=== PATIENT | male | born 1985 | race American Indian/Alaskan Native ===

== ENCOUNTER 2018-05-13 03:37 | Emergency (ER) | payer MEDICARE, MEDICAID ==
[2018-05-13 03:38] VITALS: BMI 32.5
[2018-05-13 03:53] VITALS: TEMP 98.4
--- NOTE | 2018-05-13 04:23 | ED PDOC ---
Arrival/HPI - General Chief Complaint: Rib Injury Time Seen by Provider: 05/13/18 04:04 Historian: Patient - History of Present Illness Narrative History of Present Illness (Text): 05/13/18 04:16 33 year old male, with no significant history, presents to the emergency department complaining of right side rib pain s/p doing a skateboard trick 8 days ago. Patient states he kept putting ice and took a few Ibuprofen with no relief, so patient decided to come in for evaluation. Patient denies any fever, chills, chest pain, shortness of breath, nausea, vomiting, diarrhea, urinary symptoms, back pain, neck pain, headache, dizziness, or any other complaints/ injuries. Time/Duration: Other (8 days) Symptom Onset: Gradual Symptom Course: Unchanged Activities at Onset: Light Context: Other (skateboard) Past Medical History - Provider Review Nursing Documentation Reviewed: Yes - Psychiatric Hx Substance Use: Yes - Suicidal Assessment Feels Threatened In Home Enviroment: No Family/Social History - Physician Review Nursing Documentation Reviewed: Yes Family/Social History: No Known Family HX Smoking Status: Light Smoker < 10 Cigarettes Daily Hx Alcohol Use: Yes Hx Substance Use: Yes Substance used: marijuana Allergies/Home Meds Allergies/Adverse Reactions: Allergies No Known Allergies Allergy (Unverified 11/30/15 11:33) Home Medications: Home Meds Medication Instructions Recorded Confirmed No Known Home Med 05/13/18 05/13/18 Review of Systems - Physician Review All systems were reviewed & negative as marked: Yes - Review of Systems Constitutional: absent: Fevers, Other (Chills) Respiratory: absent: SOB Cardiovascular: absent: Chest Pain Gastrointestinal: absent: Diarrhea, Nausea, Vomiting Genitourinary Male: absent: Dysuria, Frequency, Hematuria Musculoskeletal: Other (right rib pain). absent: Back Pain, Neck Pain Neurological: absent: Headache, Dizziness Physical Exam Vital Signs Reviewed: Yes Vital Signs Temp Pulse Resp BP Pulse Ox 05/13/18 05:15 74 16 110/68 97 05/13/18 03:47 98.4 F 84 18 108/70 96 Temperature: Afebrile Blood Pressure: Normal Pulse: Regular Respiratory Rate: Normal Appearance: Positive for: Well-Appearing, Non-Toxic, Comfortable Pain Distress: None Mental Status: Positive for: Alert and Oriented X 3 - Systems Exam Head: Present: Atraumatic, Normocephalic Pupils: Present: PERRL Extroacular Muscles: Present: EOMI Conjunctiva: Present: Normal Mouth: Present: Moist Mucous Membranes Neck: Present: Normal Range of Motion Respiratory/Chest: Present: Clear to Auscultation, Good Air Exchange, Other ( Tenderness to the anterior inferior rib cage with no bruising or abrasions ). No: Respiratory Distress, Accessory Muscle Use Cardiovascular: Present: Regular Rate and Rhythm, Normal S1, S2. No: Murmurs Abdomen: No: Tenderness, Distention, Peritoneal Signs Back: Present: Normal Inspection Upper Extremity: Present: Normal Inspection. No: Cyanosis, Edema Lower Extremity: Present: Normal Inspection. No: Edema Neurological: Present: GCS=15, CN II-XII Intact, Speech Normal Skin: Present: Warm, Dry, Normal Color. No: Rashes Psychiatric: Present: Alert, Oriented x 3, Normal Insight, Normal Concentration Medical Decision Making ED Course and Treatment: 05/13/18 04:17 Impression: 33 year old male presents complaining of right side rib pain s/p doing a skateboard trick 8 days ago. Plan: -- Toradol -- Ribs Right & PA Chest x-ray -- Reassess and disposition Progress Notes: 05/13/18 04:52 Ribs Right & PA Chest x-ray Impression: As read by me, negative for fractures. 05/13/18 05:01 On re-evaluation, patient feels better and is in no acute distress. I have discussed the results and plan with the patient, who expresses understanding. Patient in agreement with plan to be discharged home. Patient is stable for discharge. Patient was instructed to follow up with physician or return if symptoms worsen or new concerning symptoms arise. - RAD Interpretation Radiology Orders: 05/13/18 04:04 RIBS RIGHT & PA CHEST [RAD] Stat - Medication Orders Current Medication Orders: Discontinued Medications Ketorolac Tromethamine (Toradol) 60 mg IM STAT STA Stop: 05/13/18 04:06 Last Admin: 05/13/18 04:18 Dose: 60 mg ILIANA Pain Assessment Document 05/13/18 04:18 JOL (Rec: 05/13/18 04:19 JOL [facility] [id number] Pain Reassessment Is this a pain reassessment? No Sleep Is patient sleeping during reassessment? No Presence of Pain Presence of Pain Yes Pain Scale Used Pain Scale Used Numeric Location Left, Right or Bilateral Right Upper or Lower Upper Pain Location Body Site Chest Description Description Throbbing Intensity of Pain at present 6 Pain Behavior Rubbing Site Restlessness Facial Grimacing Aggravating Factors ADL's Changing Position IM Administration Charges Document 05/13/18 04:18 JOL (Rec: 05/13/18 04:19 JOL [facility] [id number]) Injection Site MAR Injection Site Left Deltoid Charges for Administration # of IM Administrations 1 - Scribe Statement The provider has reviewed the documentation as recorded by the Scribe Mirian Flores Provider Scribe Attestation: All medical record entries made by the Scribe were at my direction and personally dictated by me. I have reviewed the chart and agree that the record accurately reflects my personal performance of the history, physical exam, medical decision making, and the department course for this patient. I have also personally directed, reviewed, and agree with the discharge instructions and disposition. Disposition/Present on Arrival - Present on Arrival Any Indicators Present on Arrival: No History of DVT/PE: No History of Uncontrolled Diabetes: No Urinary Catheter: No History of Decub. Ulcer: No History Surgical Site Infection Following: None - Disposition Have Diagnosis and Disposition been Completed?: Yes Diagnosis: Contusion of rib on right side Disposition: HOME/ ROUTINE Disposition Time: 05:15 Patient Problems: Current Active Problems Problem Status Onset Contusion of rib on right side Acute Condition: GOOD Discharge Instructions (ExitCare): Bruised Rib (DC) Additional Instructions: LAVONNE DONALDSON, thank you for letting us take care of you today. Your provider was Tonya Mendez MD and you were treated for RIGHT FLANK PAIN. The emergency medical care you received today was directed at your acute symptoms. If you were prescribed any medication, please fill it and take as directed. It may take several days for your symptoms to resolve. Return to the Emergency Department if your symptoms worsen, do not improve, or if you have any other problems. Please contact your doctor or call one of the physicians/clinics you have been referred to that are listed on the Patient Visit Information form that is included in your discharge packet. Bring any paperwork you were given at discharge with you along with any medications you are taking to your follow up visit. Our treatment cannot replace ongoing medical care by a primary care provider outside of the emergency department. Thank you for allowing the [facility] team to be part of your care today. If you had an X-Ray or CT scan: A Radiologist will review the ED reading if any change in treatment is needed we will contact you. If you had a blood, urine, or wound culture: It will take several days for the results, if any change in treatment is needed we will contact you. If you had an STI test: It will take 48 hours for the results. Please call after 1 week if you have not heard back. Referrals: Leidy Kidd [Primary Care Provider] - Follow up with primary Forms: [employer] (Andorran)
[2018-05-13 05:34] VITALS: BP 110/68; PULSE 74; RESP 16; O2SAT 97
--- NOTE | 2018-05-13 10:51 | RAD ---
Date of service: 05/13/2018 PROCEDURE: Radiographs of the Chest and Right Ribs. HISTORY: pain with injury COMPARISON: None available. TECHNIQUE: Frontal radiograph of the chest and multiple oblique radiographs of the right ribs were obtained. FINDINGS: RIGHT RIBS: No appreciable displaced right rib fractures. LUNGS: No focal consolidation. Please note that chest x-ray has limited sensitivity for the detection of pulmonary masses. PLEURA: No significant pleural effusion. No definite pneumothorax. CARDIOVASCULAR: Heart size appears within normal limits. OTHER FINDINGS: Scoliosis. IMPRESSION: No appreciable displaced right rib fracture.
== END 2018-05-13 05:15 | disposition home or self-care (01) ==
LOC: ED 03:37
DX: S20.211A Contusion of right front wall of thorax, initial encounter (principal); Y93.51 Activity, roller skating (inline) and skateboarding; F17.210 Nicotine dependence, cigarettes, uncomplicated
CPT/HCPCS: 71101; 96372; 99283; J1885

== ENCOUNTER 2018-06-29 01:20 | Emergency (ER) | payer MEDICARE, MEDICAID ==
[2018-06-29 01:25] VITALS: BMI 30.7
[2018-06-29 01:27] VITALS: RESP 18
[2018-06-29] MEDS ORDERED: Tetracaine 0.5% Ophth 2 ML BOTTLE ONE (02:26)
--- NOTE | 2018-06-29 02:41 | ED PDOC ---
Arrival/HPI - General Chief Complaint: Eye Problem Time Seen by Provider: 06/29/18 01:54 Historian: Patient - History of Present Illness Narrative History of Present Illness (Text): 06/29/18 02:21 A 33 year old male/female with no significant past medical history presents to the emergency department complaining of since left eye irritation since yesterday. 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 Patient denies any vision changes, fever, chills, shortness of breath, chest pain, diarrhea, nausea, vomiting, urinary symptoms, back pain, neck pain, headache, dizziness, or any other complaints. PMD: Dr. Kidd Time/Duration: Other (yesterday) Symptom Onset: Sudden Symptom Course: Unchanged Activities at Onset: Light Context: Work Past Medical History - Provider Review Nursing Documentation Reviewed: Yes - Psychiatric Hx Substance Use: Yes - Suicidal Assessment Feels Threatened In Home Enviroment: No Family/Social History - Physician Review Nursing Documentation Reviewed: Yes Family/Social History: Unknown Family HX Smoking Status: Heavy Smoker > 10 Cigarettes Daily Hx Alcohol Use: Yes Frequency of alcohol use: Few days per week Hx Substance Use: Yes Substance used: marijuana Allergies/Home Meds Allergies/Adverse Reactions: Allergies No Known Allergies Allergy (Unverified 06/29/18 03:13) Review of Systems - Physician Review All systems were reviewed & negative as marked: Yes - Review of Systems Constitutional: absent: Fevers, Night Sweats Eyes: Other (+Left eye irritation) Respiratory: absent: SOB Cardiovascular: absent: Chest Pain Gastrointestinal: absent: Diarrhea, Nausea, Vomiting Genitourinary Male: absent: Urinary Output Changes Musculoskeletal: absent: Back Pain, Neck Pain Neurological: absent: Headache, Dizziness Physical Exam Vital Signs Reviewed: Yes Vital Signs Temp Pulse Resp BP Pulse Ox 06/29/18 01:24 97.5 F L 90 18 147/91 H 100 Temperature: Hypothermic Blood Pressure: Hypertensive Pulse: Regular Respiratory Rate: Normal Appearance: Positive for: Well-Appearing, Non-Toxic, Comfortable Pain Distress: None Mental Status: Positive for: Alert and Oriented X 3 - Systems Exam Head: Present: Atraumatic, Normocephalic Pupils: Present: PERRL Extroacular Muscles: Present: EOMI Conjunctiva: Present: Other (no discharge, no debris in eyelashes, Flipped the lids and found no foreign body). No: Injected Mouth: Present: Moist Mucous Membranes Neck: Present: Normal Range of Motion Respiratory/Chest: Present: Clear to Auscultation, Good Air Exchange. No: Respiratory Distress, Accessory Muscle Use Cardiovascular: Present: Regular Rate and Rhythm, Normal S1, S2. No: Murmurs Abdomen: No: Tenderness, Distention, Peritoneal Signs Back: Present: Normal Inspection Upper Extremity: Present: Normal Inspection. No: Cyanosis, Edema Lower Extremity: Present: Normal Inspection. No: Edema Neurological: Present: GCS=15, CN II-XII Intact, Speech Normal Skin: Present: Warm, Dry, Normal Color. No: Rashes Psychiatric: Present: Alert, Oriented x 3, Normal Insight, Normal Concentration Medical Decision Making ED Course and Treatment: 06/29/18 02:21 Impression: 33 year old male presenting to the emergency room for left eye irritation Plan: -- Flouroscein staining -- Eye wash -- Reassess and disposition Prior Visits: Notes and results from previous visits were reviewed. Progress Notes: 06/29/18 02:45 After eye wash, patient's eye shows a small abrasion. There was no slit lamp available to examine his eye. Patient is advised to follow up with an eye doctor. 06/29/18 02:57 Flourecine uptake at 7 o'clock position, Flipped the lids and found no foreign body. Patient underwent an eye wash and stated he saw "something very small come out". 06/29/18 03:11 Patient administered Tobrex with guided instruction from nurse. He is stable for d/c, agreeable w/POC and verbalized understanding of his d/c instructions to f/u w/ophthamology. - Scribe Statement The provider has reviewed the documentation as recorded by the Scribgodwin Martinez All medical record entries made by the Scribe were at my direction and personally dictated by me. I have reviewed the chart and agree that the record accurately reflects my personal performance of the history, physical exam, medical decision making, and the department course for this patient. I have also personally directed, reviewed, and agree with the discharge instructions and disposition. Disposition/Present on Arrival - Present on Arrival Any Indicators Present on Arrival: No History of DVT/PE: No History of Uncontrolled Diabetes: No Urinary Catheter: No History of Decub. Ulcer: No History Surgical Site Infection Following: None - Disposition Have Diagnosis and Disposition been Completed?: Yes Diagnosis: Corneal abrasion Disposition: HOME/ ROUTINE Disposition Time: 03:11 Patient Plan: Discharge Condition: GOOD Discharge Instructions (ExitCare): Corneal Abrasion (DC) Additional Instructions: LAVONNE DONALDSON, thank you for letting us take care of you today. Your provider was Melvina Barry MD and you were treated for EYE IRRITATION. The emergency medical care you received today was directed at your acute symptoms. If you were prescribed any medication, please fill it and take as directed. It may take several days for your symptoms to resolve. Return to the Emergency Department if your symptoms worsen, do not improve, or if you have any other problems. Please contact your doctor or call one of the physicians/clinics you have been referred to that are listed on the Patient Visit Information form that is included in your discharge packet for follow up appointment in one day. Bring any paperwork you were given at discharge with you along with any medications you are taking to your follow up visit. Our treatment cannot replace ongoing medical care by a primary care provider outside of the emergency department. Thank you for allowing the [facility] team to be part of your care today. Prescriptions: Tobramycin 0.3% [Tobramycin 5 Ml] 1 drop OS Q4H #1 bottle Referrals: Leidy Kidd [Primary Care Provider] - Follow up with primary Deonte Jewell MD [Staff Provider] - Follow up with primary Forms: [employer] (Vietnamese)
[2018-06-29 03:08] VITALS: BP 136/92; PULSE 72; TEMP 97.6; O2SAT 97
[2018-06-29] MEDS ORDERED: Tobramycin 0.3% OPHT SOLN OS STA (03:09)
== END 2018-06-29 03:26 | disposition home or self-care (01) ==
LOC: ED 01:20
DX: S05.02XA Injury of conjunctiva and corneal abrasion without foreign body, left eye, initial encounter (principal); X58.XXXA Exposure to other specified factors, initial encounter; Y99.0 Civilian activity done for income or pay

== ENCOUNTER 2018-11-16 15:42 | Outpatient (CLI) | payer MEDICARE, MEDICAID | END 2018-11-16 15:43 | disposition home or self-care (01) | LOC: RAD 15:42 ==